=== PATIENT | female | born 1935 | race African-American/Black ===

== ENCOUNTER 2021-12-18 09:18 | Inpatient (IN) | payer MEDICARE ==
[~2021-12-18] VITALS: Ht 160 cm; Wt 44.5 kg
[2021-12-18] MEDS ORDERED: ALBUTEROL/IPRATROPIUM 3 ML NEB NEB ONE (09:30)
[2021-12-18] MEDS ORDERED: METHYLPREDNISOLONE SOD SUCC 125 MG/2ML VIAL IV ONE (09:30)
[2021-12-18 09:51] LABS: BASOPHILS # (AUTO) 0.1 (0.0-0.1); BASOPHILS % 0.9 % (0.0-1.0); EOSINOPHILS # (AUTO) 1.1 (0.0-0.4); EOSINOPHILS % 12.7 % (0.0-6.0); HEMATOCRIT 38.8 % (34.2-44.1); HEMOGLOBIN 12.2 g/dL (12.0-16.0); LYMPHOCYTES # (AUTO) 3.6 (1.0-3.2); LYMPHOCYTES % 41.1 % (18.0-39.1); MEAN CORPUSCULAR HEMOGLOBIN 26.4 pg (28-32); MEAN CORPUSCULAR HGB CONC 31.4 g/dL (31-35); MONOCYTES # (AUTO) 0.7 (0.2-0.8); MONOCYTES % 8.1 % (4.4-11.3); NEUTROPHILS # (AUTO) 3.3 (2.1-6.9); NEUTROPHILS % 37.1 % (38.7-80.0); PLATELET COUNT 285 x10e3/uL (140-360); RED BLOOD COUNT 4.62 x10e6/uL (3.6-5.1); RED CELL DISTRIBUTION WIDTH 16.4 % (11.7-14.4)
[2021-12-18] MEDS: SODIUM CHLORIDE FLUSH 10 ML SYR IV PRN ×2 (10:04→10:05)
[2021-12-18 10:20] LABS: ALANINE AMINOTRANSFERASE 7 IU/L (0-55); ALBUMIN 3.6 g/dL (3.5-5.0); ALBUMIN/GLOBULIN RATIO 0.8 (0.8-2.0); ALKALINE PHOSPHATASE 78 IU/L (40-150); ANION GAP 19.5 mmol/L (8-16); BLOOD UREA NITROGEN 9 mg/dL (7-26); BUN/CREATININE RATIO 9 (6-25); CARBON DIOXIDE 23 mmol/L (22-29); CHLORIDE 103 mmol/L (98-107); CREATINE KINASE 49 IU/L (29-168); CREATININE, SERUM 1.03 mg/dL (0.57-1.11); GLUCOSE 152 mg/dL (74-118); INR 0.96; POTASSIUM 3.5 mmol/L (3.5-5.1); PROTHROMBIN TIME 13.7 seconds (11.9-14.5); SODIUM 142 mmol/L (136-145)
[2021-12-18] MEDS ORDERED: SODIUM CHLORIDE 0.9% 1000ML 1,000 ML IV STA (10:30)
[2021-12-18] MEDS ORDERED: ONDANSETRON HCL INJ 2MG/ML 2ML 2 MG/ML VIAL IV PRN ×2 (12:30→17:00)
[2021-12-18] MEDS ORDERED: Morphine 2mg Syringe 2 MG/ML SYR IV PRN (12:30)
[2021-12-18] MEDS ORDERED: ALBUTEROL/IPRATROPIUM 3 ML NEB NEB PRN (12:30)
[2021-12-18] MEDS ORDERED: SODIUM CHLORIDE 0.9% 1000ML 1,000 ML IV SCH (12:30)
[2021-12-18 13:12] LABS: CLARITY,URINE TURBID (CLEAR); COLOR,URINE YELLOW (YELLOW); KETONES,URINE NEGATIVE (NEGATIVE); LEUKOCYTE ESTERASE ,URINE MODERATE (NEGATIVE); NITRITE,URINE NEGATIVE (NEGATIVE); PROTEIN,URINE DIPSTICK NEGATIVE (NEGATIVE); URINE UROBILINOGEN 0.2 mg/dL (0.2 - 1)
[2021-12-18 13:16] LABS: BACTERIA,URINE FEW /HPF; EPITHELIAL CELLS,URINE FEW /LPF; RBC,URINE 0-5 /HPF (0-5)
[2021-12-18 13:17] LABS: AMORPHOUS SEDIMENT,URINE MODERATE (FEW)
[2021-12-18 15:42] VITALS: BP 159/74
[2021-12-18] MEDS ORDERED: CLONIDINE HCL 0.1 MG TAB PO PRN (17:00)
[2021-12-18] MEDS: AMLODIPINE BESYLATE 5 MG TAB PO SCH (18:17)
[2021-12-18 19:09] LABS: CREATINE KINASE 44 IU/L (29-168)
[2021-12-18 20:15] VITALS: BP 162/86
[2021-12-18] MEDS: HEPARIN SOD (PORCINE) 5,000 UNIT/ML VIAL SC SCH (23:34)
[2021-12-18] MEDS: ZOLPIDEM TARTRATE 5 MG TAB PO PRN (23:35)
[2021-12-19] VITALS (8 sets, daily range): BP systolic 145–166; BP diastolic 64–93
[2021-12-19 06:48] LABS: HEMATOCRIT 36.2 % (34.2-44.1); HEMOGLOBIN 11.5 g/dL (12.0-16.0); LYMPHOCYTES # (AUTO) 1.7 (1.0-3.2); LYMPHOCYTES % 38.7 % (18.0-39.1); MEAN CORPUSCULAR HEMOGLOBIN 26.1 pg (28-32); MEAN CORPUSCULAR HGB CONC 31.8 g/dL (31-35); MEAN CORPUSCULAR VOLUME 82.3 fL (81-99); MONOCYTES # (AUTO) 0.7 (0.2-0.8); NEUTROPHILS % 46.1 % (38.7-80.0); PLATELET COUNT 207 x10e3/uL (140-360); RED CELL DISTRIBUTION WIDTH 16.5 % (11.7-14.4)
[2021-12-19 07:03] LABS: ANION GAP 14.4 mmol/L (8-16); CALCIUM 9.7 mg/dL (8.4-10.2); CREATININE, SERUM 0.81 mg/dL (0.57-1.11); POTASSIUM 3.4 mmol/L (3.5-5.1)
[2021-12-19] MEDS: ACETAMINOPHEN 325 MG TAB PO PRN (07:25)
[2021-12-19 07:29] LABS: CREATINE KINASE 60 IU/L (29-168)
[2021-12-19] MEDS: HEPARIN SOD (PORCINE) 5,000 UNIT/ML VIAL SC SCH ×2 (09:00→21:43)
[2021-12-19] MEDS: AMLODIPINE BESYLATE 5 MG TAB PO SCH ×2 (09:00→17:00)
[2021-12-19 14:21] LABS: CREATINE KINASE 79 IU/L (29-168)
[2021-12-19] MEDS ORDERED: POTASSIUM CHLORIDE 20 MEQ TAB CR PO STA (19:04)
[2021-12-19] MEDS: ZOLPIDEM TARTRATE 5 MG TAB PO PRN (21:44)
[2021-12-20] VITALS (7 sets, daily range): BP systolic 127–167; BP diastolic 62–75
[2021-12-20] MEDS: AMLODIPINE BESYLATE 5 MG TAB PO SCH ×2 (08:55→16:44)
[2021-12-20] MEDS: HEPARIN SOD (PORCINE) 5,000 UNIT/ML VIAL SC SCH (09:57)
[2021-12-20] MEDS: AZITHROMYCIN 250 MG TAB PO SCH (14:55)
[2021-12-20] MEDS: ACETAMINOPHEN 325 MG TAB PO PRN (16:44)
[2021-12-21] VITALS (7 sets, daily range): BP systolic 125–159; BP diastolic 67–88
[2021-12-21 06:13] LABS: HEMATOCRIT 35.7 % (34.2-44.1); HEMOGLOBIN 11.4 g/dL (12.0-16.0); RED BLOOD COUNT 4.43 x10e6/uL (3.6-5.1)
[2021-12-21 06:14] LABS: BASOPHILS % 0.5 % (0.0-1.0); EOSINOPHILS # (AUTO) 0.5 (0.0-0.4); EOSINOPHILS % 8.1 % (0.0-6.0); LYMPHOCYTES % 33.3 % (18.0-39.1); MEAN CORPUSCULAR HEMOGLOBIN 25.7 pg (28-32); MEAN CORPUSCULAR HGB CONC 31.9 g/dL (31-35); MEAN CORPUSCULAR VOLUME 80.6 fL (81-99); MONOCYTES # (AUTO) 0.6 (0.2-0.8); MONOCYTES % 9.9 % (4.4-11.3); NEUTROPHILS # (AUTO) 2.9 (2.1-6.9); PLATELET COUNT 264 x10e3/uL (140-360); RED CELL DISTRIBUTION WIDTH 16.3 % (11.7-14.4)
[2021-12-21 06:20] LABS: ANION GAP 10.2 mmol/L (8-16); CALCIUM 9.3 mg/dL (8.4-10.2); CREATININE, SERUM 0.77 mg/dL (0.57-1.11); MAGNESIUM 1.9 MG/DL (1.3-2.1); POTASSIUM 3.2 mmol/L (3.5-5.1)
[2021-12-21] MEDS: AMLODIPINE BESYLATE 5 MG TAB PO SCH ×2 (09:00→18:56)
[2021-12-21] MEDS ORDERED: POTASSIUM CHLORIDE 20 MEQ TAB CR PO ONE (09:30)
[2021-12-21] MEDS ORDERED: PROPOFOL IV EMULSION 10 MG/ML 20 ML VIAL ONE (13:05)
[2021-12-21] MEDS ORDERED: POVIDONE IODINE 0.05% 0.05 % ML PO ONE (13:05)
[2021-12-21] MEDS ORDERED: SEVOFLURANE INHAL SOLN 250 ML PEN BTL ONE (13:05)
[2021-12-21] MEDS ORDERED: ONDANSETRON HCL INJ 2MG/ML 2ML 2 MG/ML VIAL ONE (13:05)
[2021-12-21] MEDS ORDERED: POTASSIUM CHLORIDE 20MEQ/100ML 200 ML IV ONE (13:15)
[2021-12-21] MEDS ORDERED: Morphine 2mg Syringe 2 MG/ML SYR IV ONE (13:15)
[2021-12-21] MEDS ORDERED: IOPAMIDOL 300MG/ML 50ML INFUS..BTL IV ONE (13:48)
[2021-12-21] MEDS: ACETAMINOPHEN 325 MG TAB PO PRN (15:32)
[2021-12-21] MEDS: TRAMADOL HCL 50 MG TAB PO PRN (18:56)
[2021-12-21] MEDS: AZITHROMYCIN 250 MG TAB PO SCH (18:56)
[2021-12-22 00:57] VITALS: BP 176/78
[2021-12-22 05:00] LABS: BASOPHILS % 0.2 % (0.0-1.0); HEMATOCRIT 40.8 % (34.2-44.1); HEMOGLOBIN 12.7 g/dL (12.0-16.0); LYMPHOCYTES # (AUTO) 0.8 (1.0-3.2); LYMPHOCYTES % 14.1 % (18.0-39.1); MEAN CORPUSCULAR HGB CONC 31.1 g/dL (31-35); MEAN CORPUSCULAR VOLUME 83.4 fL (81-99); MONOCYTES # (AUTO) 0.2 (0.2-0.8); MONOCYTES % 3.6 % (4.4-11.3); NEUTROPHILS # (AUTO) 4.5 (2.1-6.9); NEUTROPHILS % 81.9 % (38.7-80.0); PLATELET COUNT 208 x10e3/uL (140-360); RED BLOOD COUNT 4.89 x10e6/uL (3.6-5.1); RED CELL DISTRIBUTION WIDTH 17.1 % (11.7-14.4)
[2021-12-22 05:02] VITALS: BP 156/68
[2021-12-22 05:25] LABS: CREATININE, SERUM 0.82 mg/dL (0.57-1.11)
[2021-12-22 08:57] VITALS: BP 155/78
[2021-12-22 09:00] VITALS: BP 155/78
[2021-12-22] MEDS: AMLODIPINE BESYLATE 5 MG TAB PO SCH (10:57)
[2021-12-22] MEDS: SODIUM CHLORIDE FLUSH 10 ML SYR IV PRN ×2 (10:57→15:08)
[2021-12-22] MEDS: TRAMADOL HCL 50 MG TAB PO PRN (11:07)
[2021-12-22 13:29] VITALS: BP 168/81
[2021-12-22 13:31] VITALS: BP 168/80
[2021-12-22] MEDS: ACETAMINOPHEN 325 MG TAB PO PRN (14:09)
[2021-12-22] MEDS ORDERED: HYDROCODON-ACE1 EA10 PO (15:01)
[2021-12-22] MEDS: AZITHROMYCIN 250 MG TAB PO SCH (15:08)
[2021-12-22] MEDS ORDERED: ONDANSETRON HCL 4 MG ORAL DISINTEGRATING TAB PO PRN (15:15)
== END 2021-12-22 15:50 | disposition home health service (06) | DRG 659 ==
LOC: ER 09:25 → ERHOLD 12:19 → MED/SURG2 13:44 → OBSVTOIN 17:20
PROVIDERS: ADMIT Internal Medicine; ATTEND Internal Medicine
PROC: BT1D1ZZ Fluoroscopy of Right Kidney, Ureter and Bladder using Low Osmolar Contrast (ICD-10-PCS; 2021-12-21)
PROC: 0T768DZ Dilation of Right Ureter with Intraluminal Device, Via Natural or Artificial Opening Endoscopic (ICD-10-PCS; principal; 2021-12-21 13:29)
DX: N13.6 Pyonephrosis (principal); E43 Unspecified severe protein-calorie malnutrition; J44.1 Chronic obstructive pulmonary disease with (acute) exacerbation; Z68.1 Body mass index [BMI] 19.9 or less, adult; M81.0 Age-related osteoporosis without current pathological fracture; E87.6 Hypokalemia; Z20.822 Contact with and (suspected) exposure to COVID-19; I12.9 Hypertensive chronic kidney disease with stage 1 through stage 4 chronic kidney disease, or unspecified chronic kidney disease; N18.9 Chronic kidney disease, unspecified; H91.90 Unspecified hearing loss, unspecified ear; Z87.891 Personal history of nicotine dependence
CPT/HCPCS: 36415; 71260; 74177; 74420; 80048; 80053; 81001; 82550; 82553; 82948; 83735; 83880; 84484; 85025; 85610; 85730; 87086; 93005; 94760; 94799; 99251; 99284; C2617; J0456; J0696; J1644; J2270; J2405; J2930; J3480; J7030; J7050; U0002

== ENCOUNTER 2022-02-22 17:46 | Emergency (ER) | payer MEDICARE ==
[~2022-02-22] VITALS: Ht 160 cm; Wt 44.5 kg
[~2022-02-22 17:46] MED LIST: HYDROCODON-ACE1 EA10 PO
== END 2022-02-22 18:44 | disposition home or self-care (01) ==
LOC: ER 17:49
DX: I95.9 Hypotension, unspecified (principal); I10 Essential (primary) hypertension; I25.10 Atherosclerotic heart disease of native coronary artery without angina pectoris; J44.9 Chronic obstructive pulmonary disease, unspecified; E78.5 Hyperlipidemia, unspecified; K21.9 Gastro-esophageal reflux disease without esophagitis; F41.9 Anxiety disorder, unspecified
CPT/HCPCS: 99282